=== PATIENT | female | born 1995 | race Caucasian/White ===

== ENCOUNTER 2018-05-01 01:30 | Emergency (ER) | payer OTHER ==
[~2018-05-01] VITALS: Ht 162.6 cm; Wt 52.2 kg
[2018-05-01 01:51] VITALS: BP 101/68
[2018-05-01] MEDS ORDERED: IBUPROFEN600 MG ORAL (02:03)
[2018-05-01] MEDS ORDERED: AUGMENTIN 875-1 EAC1 ORAL (02:03)
--- NOTE | 2018-05-01 02:05 | Emergency Room Report ---
History of Present Illness General Chief Complaint: Flu Like Symptoms Source: Patient Present Illness HPI Patient presents with complaints of sore throat and body aches headache Cough and nasal congestion Reports that symptoms have been ongoing for the past 2 weeks Denies any posterior neck pain denies any photophobia Denies any chest pain denies any recent travel denies any rash denies any vomiting or diarrhea Allergies: Coded Allergies: No Known Allergies (Unverified , 05/01/18) Patient History Past Medical History: see triage record Pertinent Family History: none Last Menstrual Period: 03/08/2015 Now: No : 1 Para: 0 Reviewed Nursing Documentation: PMH: Agreed; PSxH: Agreed Nursing Documentation-PMH Past Medical History: No Stated History Review of Systems All Other Systems: negative except mentioned in HPI Physical Exam Vital Signs Date Time Temp Pulse Resp B/P (MAP) Pulse Ox O2 Delivery O2 Flow Rate FiO2 05/01/18 01:34 98.2 99 16 101/68 Room Air 98.2 05/01/18 01:51 99 Sp02 EP Interpretation: reviewed, normal General Appearance: well appearing, no apparent distress Head: normocephalic, atraumatic Eyes: bilateral eye PERRL, bilateral eye EOMI ENT: hearing grossly normal, TMs + canals normal, uvula midline, pharyngeal erythema Neck: full range of motion, supple, no meningismus, no bony tend Respiratory: lungs clear, normal breath sounds, no rhonchi, no respiratory distress, no retraction, no accessory muscle use Cardiovascular #1: normal peripheral pulses, regular rate, rhythm, no edema, no gallop, no JVD, no murmur Gastrointestinal: normal bowel sounds, non tender, soft, no mass, no organomegaly, non-distended, no guarding, no hernia, no pulsatile mass, no rebound Genitourinary: no CVA tenderness Musculoskeletal: normal inspection Neurologic: oriented x3, responsive, [employer] III-XII nml as tested, motor strength/ tone normal, sensory intact Psychiatric: mood/affect normal Skin: normal color, no rash, warm/dry, palpation normal Lymphatic: normal inspection, no adenopathy Medical Decision Making Diagnostic Impression: Primary Impression: pharyngitis ER Course Patient's exam and findings are consistent with pharyngitis Patient is placed on antibiotics and will have close outpatient follow-up Patient's exam does not reveal any concerning findings at this time regarding peritonsillar abscess or meningitis Labs Test 05/01/18 02:10 Urine HCG, Qualitative Negative (NEGATIVE) Urine Opiates Screen Negative (NEGATIVE) Urine Barbiturates Screen Negative (NEGATIVE) Phencyclidine (PCP) Screen Negative (NEGATIVE) Urine Amphetamines Screen Negative (NEGATIVE) Urine Benzodiazepines Screen Negative (NEGATIVE) Urine Cocaine Screen Negative (NEGATIVE) Urine Marijuana (THC) Screen Positive (NEGATIVE) Last Vital Signs Date Time Temp Pulse Resp B/P (MAP) Pulse Ox O2 Delivery O2 Flow Rate FiO2 05/01/18 01:51 98.2 16 101/68 99 Room Air 98.2 05/01/18 01:51 99 Status: improved Disposition: HOME, SELF-CARE Condition: Improved Scripts Ibuprofen* (MOTRIN*) 600 Mg Tablet 600 MG ORAL Q8H PRN for For Pain, #20 TAB 0 Refills Prov: Karen Dominguez DO 05/01/18 Amoxicillin/Potassium Clav 875-125* (AUGMENTIN 875-125 TABLET*) 1 Each Tablet 1 TAB ORAL TWICE A DAY, #14 TAB Prov: Karen Dominguez DO 05/01/18 Referrals: TERESITA HERNANDEZ [facility] (PCP) Patient Instructions: Pharyngitis, [id number] Additional Instructions: Patient is provided with the discharge instructions notified to follow up with primary doctor in the next 2-3 days otherwise return to the er with any worsening symptoms. Please note that this report is being documented using [employer] technology. This can lead to erroneous entry secondary to incorrect interpretation by the dictating instrument. Karen Dominguez DO May 01, 2018 02:05
[2018-05-01] MEDS ORDERED: Augmentin 875mg Tab ORAL ONE (02:15)
[2018-05-01 02:45] VITALS: BP 100/64
== END 2018-05-01 02:45 | disposition home or self-care (01) ==
LOC: EMR 01:43
DX: J02.9 Acute pharyngitis, unspecified (principal)
CPT/HCPCS: 80307; 81025; 99284